=== PATIENT | male | born 1990 | race Caucasian/White ===

== ENCOUNTER 2018-01-06 10:37 | Emergency (ER) | payer SELFPAY ==
[2018-01-06 10:37] VITALS: BP 137/86; PULSE 80; RESP 14; TEMP 36.7; O2SAT 99; BMI 53.8
--- NOTE | 2018-01-06 10:50 | VDLE_ITS ---
Reason For Study: pain RIGHT GSV is normal. CFV is compressible, spontaneous, phasic, competent and demonstrates normal augmentation. FV is compressible, spontaneous, phasic, competent and demonstrates normal augmentation. POP V is compressible, spontaneous, phasic, competent and demonstrates normal augmentation. T/P Trunk is compressible. PTV is compressible. RT PerV is compressible. Hypoechoic area behind the knee measuring 2.24 x 1.66 x 3.98 cm. Area is nonvascular. Procedure Exam performed portable in ED. The exam was diagnostic. A preliminary report was called and/or faxed to Dr. Jackson. Interpretation Summary There is no evidence of right lower extremity deep vein thrombosis. Right greater saphenous vein appears patent and compressible segmentally. Right popliteal space Mcfarland's cyst 2.24 x 1.66 x 3.98 cm. Ordering Physician: Konrad Jackson Performed By: Dionicio Dacosta RVT
[2018-01-06] MEDS: Naproxen 500 MG Tablet PO (11:08)
--- NOTE | 2018-01-06 11:09 | ED.VISSUMM ---
- ER Visit Summary Date of Service: 01/06/18 Chief Complaint: Right calf pain History of Present Illness: The patient is a [address] Montero. Reports that he has right calf pain that began last night. Describes as a throbbing pain that is 7 out of 10 with walking and 5 out of 10 at rest. Denies any paresthesias distally. No recent trauma. No fall, MVA, or change in activity. No personal or family history of DVT. No recent travel. No chest pain or shortness of breath. Physical Examination: Vitals: Stable. Afebrile. General: Well-nourished and well-developed. Head: Normocephalic atraumatic. Neck: Supple, no lymphadenopathy. No JVD. Nontender. Cardiovascular: Regular rate and rhythm. No murmurs. Respiratory: No respiratory distress. Clear to auscultation bilaterally. Abdominal: Soft, nontender, nondistended, normal bowel sounds. No guarding, rebound, or peritoneal signs. Back: Nontender. Extremities: Mild tenderness palpation over the right calf, no erythema/induration, No edema. Skin: Normal color, no rash. Neurologic: Alert and oriented ?3. Cranial nerves II through XII are intact. Normal strength and sensation. Psych: Normal affect. Test Results: Doppler was negative for DVT. It did show a swollen area consistent with a ruptured Mcfarland's cyst. Emergency Department Course and Treatment: She was treated with naproxen. He is resting comfortably. Treatment Plan: Patient will be discharged with naproxen. Instructed to follow-up with Dr. Montero in 1 week if not improving. Disposition: To home in improved and stable condition. Impression: 1. Right calf pain, acute. 2. Right Mcfarland's cyst. This note was generated with [employer] dictation software. It may contain incorrect words, spelling, and punctuation that were not noted in review of the chart prior to signing ED Disposition - Plan for ED Patient: Chief Complaint: Lower Extremity Injury Instructions: ED Cyst Mcfarland Prescriptions: Naproxen [Naprosyn] 500 mg PO BID PRN #20 tablet Referrals: Samson Montero MD [Primary Care Provider] - 1 Week if not improving
--- NOTE | 2018-01-06 11:12 | ED.DCSUM_ITS ---
- ER Visit Summary Date of Service: 01/06/18 Chief Complaint: Right calf pain History of Present Illness: The patient is a [address] Montero. Reports that he has right calf pain that began last night. Describes as a throbbing pain that is 7 out of 10 with walking and 5 out of 10 at rest. Denies any paresthesias distally. No recent trauma. No fall, MVA, or change in activity. No personal or family history of DVT. No recent travel. No chest pain or shortness of breath. Physical Examination: Vitals: Stable. Afebrile. General: Well-nourished and well-developed. Head: Normocephalic atraumatic. Neck: Supple, no lymphadenopathy. No JVD. Nontender. Cardiovascular: Regular rate and rhythm. No murmurs. Respiratory: No respiratory distress. Clear to auscultation bilaterally. Abdominal: Soft, nontender, nondistended, normal bowel sounds. No guarding, rebound, or peritoneal signs. Back: Nontender. Extremities: Mild tenderness palpation over the right calf, no erythema/ induration, No edema. Skin: Normal color, no rash. Neurologic: Alert and oriented ?3. Cranial nerves II through XII are intact. Normal strength and sensation. Psych: Normal affect. Test Results: Doppler was negative for DVT. It did show a swollen area consistent with a ruptured Mcfarland's cyst. Emergency Department Course and Treatment: She was treated with naproxen. He is resting comfortably. Treatment Plan: Patient will be discharged with naproxen. Instructed to follow- up with Dr. Montero in 1 week if not improving. Disposition: To home in improved and stable condition. Impression: 1. Right calf pain, acute. 2. Right Mcfarland's cyst. This note was generated with [employer] dictation software. It may contain incorrect words, spelling, and punctuation that were not noted in review of the chart prior to signing ED Disposition - Plan for ED Patient: Chief Complaint: Lower Extremity Injury Instructions: ED Cyst Mcfarland Prescriptions: Naproxen [Naprosyn] 500 mg PO BID PRN #20 tablet Referrals: Samson Montero MD [Primary Care Provider] - 1 Week if not improving
[2018-01-06 12:08] VITALS: BP 124/79; PULSE 79; RESP 16; O2SAT 97
== END 2018-01-06 12:08 | disposition home or self-care (01) ==
LOC: ED 11:30
PROVIDERS: Emergency Provider Emergency Medicine; Family Provider Family Medicine; PCP Family Medicine
DX: M79.661 Pain in right lower leg (principal); M71.21 Synovial cyst of popliteal space [Baker], right knee; F17.200 Nicotine dependence, unspecified, uncomplicated
CPT/HCPCS: 93971; 99283

== ENCOUNTER 2018-08-15 11:27 | Emergency (ER) | payer SELFPAY ==
[2018-08-15 11:28] VITALS: BP 133/94; PULSE 95; RESP 18; TEMP 36.8; O2SAT 98; BMI 23.5
--- NOTE | 2018-08-15 11:40 | RAD_ITS ---
STUDY: X-RAY - LEFT KNEE REASON FOR EXAM: Male, 27 years old. Pain status post trauma yesterday. TECHNIQUE: 4 view(s) of the knee. COMPARISON: None. FINDINGS: Normal visualized distal femur. Normal visualized proximal tibia and fibula. Normal proximal tibiofibular articulation. Normal medial femorotibial compartment. Normal lateral femorotibial compartment. Normal patellofemoral articulation. There is prepatellar soft tissue swelling/edema. There is no effusion. RAD/Knee 4 or More Views IMPRESSION: No plain film evident acute osseous abnormality. There is nonspecific prepatellar soft tissue swelling/edema. There is no knee effusion. Recommendation: If internal derangement is clinically suspected, recommend evaluation with MRI. Electronically Signed: Moe Herrera MD at 12:23 EDT , Service support ,
--- NOTE | 2018-08-15 13:14 | ED.VISSUMM ---
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 He states that yesterday around noon he was walking by a frame and hit the left knee on a 2 x 4. He states that it really did not hurt him that much but by the evening hours to become swollen and red. He states that he can move the knee and the discomfort feels not so much in the joint but in the skin tissue. He notes swelling inferior to the patella. No fevers. He denies any cuts in the skin to make him think he got a splinter into the skin. Physical Examination: Afebrile vital signs are stable Gen: Well-nourished well-developed Head: Normocephalic atraumatic Eyes: Perrl EOMI ENT: TMs clear no rhinorrhea moist mucous membranes Neck: Supple no lymphadenopathy no JVD nontender CVS: Regular rate rhythm no murmurs normal S1-S2 Respiratory: No distress clear to auscultation bilaterally chest nontender Abdomen: Soft nontender nondistended normal bowel sounds no masses Back: Nontender Extremity: Over the anterior lateral aspect of the knee is a well demarcated area of erythema and increased warmth. Inferior to the patella there is some swelling possibly due to infrapatellar bursitis. There is no palpable joint effusion. There is a hair follicle that appears to be infected just below the patella in the midline. There is no lymphangitic streaking. Skin: Normal color no rash Neuro: alert orientated ?3 CN II-XII intact normal strength sensation reflexes gait cerebellar Psych: Normal affect normal mood Test Results: X-rays were obtained and I do not see any obvious radiopaque foreign body or large joint effusion. Emergency Department Course and Treatment: I spoke with Dr. Mai for orthopedics who is happy to follow-up with the patient. I think at this time he has a left knee cellulitis possibly a infectious/traumatic infra patellar bursitis. Patient will be placed on Keflex. He was strongly encouraged to follow-up with orthopedics as soon as possible and given that we are closing in on the weekend if he has any concerns before he is followed up with he should return to the emergency department. He was advised that there is a slight possibility of retained foreign body. But at this time I do not see any obvious entry point where that could have occurred. Impression: 1. Left knee cellulitis This note was generated with [employer] dictation software. It may contain incorrect words, spelling, and punctuation that were not noted in review of the chart prior to signing ED Disposition - Plan for ED Patient: Disposition: Home or Assisted Living Chief Complaint: Lower Extremity Injury Prescriptions: Hydrocodone Bitart/Apap 5-325 [[place] 5MG-325MG] 1 tab PO Q6H PRN PRN 3 Days #12 tab PRN Reason: Pain Cephalexin [Keflex] 500 mg PO Q6 #40 cap Referrals: Luis Mai DO [STAFF PHYSICIAN] - As soon as possible Additional Instructions: If any concerns over the weekend or worsening swelling or pain please return to the emergency department for repeat examination As discussed there is a chance your knee joint may become infected and you may require surgery. Therefore it is imperative to have early follow-up and return if any concerns.
== END 2018-08-15 13:29 | disposition home or self-care (01) ==
PROVIDERS: Emergency Provider Emergency Medicine; Family Provider Family Medicine; PCP Family Medicine
DX: L03.116 Cellulitis of left lower limb (principal); M70.52 Other bursitis of knee, left knee; Y93.9 Activity, unspecified
CPT/HCPCS: 73564; 99282

== ENCOUNTER 2019-11-27 11:00 | Emergency (ER) | payer SELFPAY ==
[2019-11-27 11:01] VITALS: BP 151/86; PULSE 104; RESP 18; TEMP 36.7; O2SAT 99; BMI 23.2
--- NOTE | 2019-11-27 11:13 | ED.VIS.GEN ---
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 He states he has been snorting heroin daily for about a year. He last used 2 days ago. Since that time he has had shakes, nausea, cold chills. He states he will occasionally use marijuana but denies any other drugs. - Past Medical History (1) Asthma Status: Chronic Past Medical History - Allergies and Home Meds Allergies/Adverse Reactions: Allergies No Known Allergies Allergy (Verified 11/27/19 11:03) Primary Care Physician: Samson Montero DO [Primary Care Provider] - Prior records reviewed: Yes Lives: With Family Smoking Status: Unknown if ever smoked Drugs: Heroin, Marijuana Review of Systems General: Reports: Sweats. Denies: Chills, Fever Eyes: Denies: Visual changes - bilaterally ENT: Denies: Bilateral ear pain Cardiovascular: Reports: Heart racing. Denies: Chest pain Respiratory: Denies: Dyspnea Gastrointestinal: Reports: Nausea Musculoskeletal: Reports: Myalgias Skin: Denies: Rash Neurological: Denies: Headache Allergy: Denies: Uticaria Physical Exam Vital Signs/Narrative: Vital Signs Temp Pulse Resp BP Pulse Ox 11/27/19 11:01 98.0 F 104 H 18 151/86 H 99 Inital Vital Signs reviewed: Yes General: Well nourished, Well developed ENT: Moist mucous membranes Neck: Supple Cardiovascular: Tachycardia Respiratory: No distress, CTA bilaterally Abdomen: Soft, Nontender, Hypoactive bowel sounds Extremities: - - Mild tremor noted to his hands. Skin: Normal color Neurological: Alert, Oriented x3 Psychological: - - Anxious Diagnostic/Tx/Re-eval - Medical Decision Making I initially ordered labs for the patient to be admitted for detox, but he states he actually has an appointment with the [facility] tomorrow. He was just hoping presented to take the edge off today so he could make it to his appointment. Social work met with the patient and provided information on [facility] which should be more proximal for him. She spoke with [facility] and the patient can go there directly from here for an intake appointment. They state that Dr. Justice does not have an appointment available for 2 weeks. Patient was given p.o. Ativan here. He will begin a prescription for 3 tabs at home which will help control his symptoms until he is seen tomorrow. ED Disposition - Plan for ED Patient: Disposition: Home or Assisted Living Diagnosis: Opioid withdrawal Instructions: Narcotic Withdrawal Prescriptions: Lorazepam [Ativan] 1 mg PO TID #3 tablet Transmission Status: Received by JASON PRATT VILLAGOMEZ LEMUEL Referrals: [facility] [STAFF PHYSICIAN] - As soon as possible
--- NOTE | 2019-11-27 11:50 | CM.ED ---
SOCIAL WORK INFORMANT: DR. GONZALEZ REASON FOR REFERRAL: SUBSTANCE ABUSE/RESOURCES DISCUSSED CASE WITH DR. GONZALEZ. PER DR. GONZALEZ, PATIENT PRESENTS WITH HEROIN WITHDRAW. PATIENT NOT WANTING TO BE ADMITTED FOR DETOX AND STATES HAS APPOINTMENT WITH [facility] IN [place] TOMORROW. THIS WORKER TO FOLLOW UP TO PROVIDE INFORMATION ON [facility]. MET WITH PATIENT AND IN ROOM. 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 STATES DID NOT KNOW PATIENT WAS USING. MUCH EMOTIONAL SUPPORT AND ACTIVE LISTENING PROVIDED TO BOTH PATIENT AND . DISCUSSED LOCAL RESOURCES. PATIENT OPEN TO COMPLETING INTAKE APPOINTMENT WITH [facility] THIS DAY. DISCUSSED MEDICAID AND PATIENT BELIEVES WOULD QUALIFY. MEDICAID INFORMATION PROVIDED. CALL TO [facility], SPOKE WITH [facility] WHO REPORTS PATIENT ABLE TO DO WALK IN INTAKE THIS DAY. INFORMED PATIENT MAY HAVE TO WAIT A LITTLE WHILE. [facility] ALSO INFORMED THIS WORKER PATIENT WOULD NOT BE ABLE TO GET INTO [facility] FOR A WEEK TO 2 WEEKS AND WILL DISCUSS WITH PATIENT UPON INTAKE. UPDATED PATIENT AND WHO VERBALIZE UNDERSTANDING AND WILL BE GOING TO [facility] UPON D/C FROM EMERGENCY DEPARTMENT. PATIENT PLANS TO KEEP APPOINTMENT WITH [facility] IN [place] UNTIL ALL OPTIONS WITH [facility] DISCUSSED. PATIENT AND DENY ANY FURTHER NEEDS. PLAN: HOME WITH INTAKE APPOINTMENT AT [facility]. LASHAUN VIZCARRA, HOUSE OFFICER.
[2019-11-27] MEDS: LORazepam 1 MG Tablet PO ×2 (11:52→13:39)
[2019-11-27 11:56] VITALS: RESP 19
[2019-11-27 13:40] VITALS: BP 121/90; PULSE 87; RESP 16; O2SAT 99
== END 2019-11-27 13:43 | disposition home or self-care (01) ==
PROVIDERS: Emergency Provider Emergency Medicine; PCP Family Medicine; Referring Provider Family Medicine
DX: F11.23 Opioid dependence with withdrawal (principal); J45.909 Unspecified asthma, uncomplicated; F12.90 Cannabis use, unspecified, uncomplicated
CPT/HCPCS: 99283